=== PATIENT | male | born 1970 | race Hispanic/Latino ===

== ENCOUNTER 2019-05-30 14:04 | Emergency (ER) | payer OTHER ==
[2019-05-30 14:48] LABS: #Basophils 0.1 thou/uL (0.0-0.2); #Eosinphils 0.1 thou/uL (0.0-0.7); #Lymphocytes 1.7 thou/uL (1.20-3.40); #Monocytes 0.5 thou/uL (0.11-0.59); #Neutrophils 4.1 thou/uL (1.40-6.50); %Basophils 0.8 % (0.0-1.0); %Eosinophils 1.3 % (0.0-10.0); %Lymphocytes 26.3 % (21.0-51.0); %Monocytes 7.8 % (0.0-10.0); %Neutrophils 63.8 % (42.0-75.0); Hemoglobin 15.4 g/dL (14.0-18.0); Mean Corpuscular HGB CONC 33.8 g/dL (32.0-36.0); Mean Corpuscular Hemoglobin 32.7 pg (27.0-31.0); Mean Corpuscular Volume 96.9 fL (78.0-98.0); Mean Platelet Volume 6.8 fL (7.4-10.4); Platelet Count 265 thou/uL (130-400); RBC Distribution Width 11.9 % (11.5-14.5); White Blood Cell (WBC) Count 6.4 thou/uL (4.8-10.8)
[2019-05-30 15:09] LABS: ALT (SGPT) 16 U/L (8-55); AST (SGOT) 15 U/L (5-34); Albumin 4.4 g/dL (3.5-5.0); Alkaline Phosphatase 62 U/L (40-150); Anion Gap 11 mmol/L (10-20); BUN (Urea Nitrogen) 13 mg/dL (8.9-20.6); Bilirubin, Total 0.8 mg/dL (0.2-1.2); Calc. Creatinine Clearance 0 mL/min (70-130); Carbon Dioxide 30 mmol/L (22-29); Chloride 100 mmol/L (98-107); Estimated GFR-MDRD 79; Globulin 3.4 g/dL (2.4-3.5); Glucose 140 mg/dL (70-105); Protein, Total 7.8 g/dL (6.0-8.3); Sodium 137 mmol/L (136-145)
--- NOTE | 2019-05-30 16:23 | RAD ---
XR Chest 1 View Portable HISTORY: Syncope nausea and vomiting COMPARISON: None. FINDINGS: Heart size and mediastinum are within normal limits. The lungs are clear of infiltrates. No significant bony findings. IMPRESSION: No active intrathoracic disease.
[2019-05-30 16:37] LABS: CK (CPK) 66 U/L (30-200); Lipase 13 U/L (8-78)
[2019-05-30 17:05] LABS: Bilirubin Negative (Negative); Blood, Urine Negative (Negative); Clarity Clear (Clear); Glucose, Urine (Dipstick) Normal (Negative); Leukocyte Negative Leu/uL (Negative); Nitrite Negative (Negative); Protein, Urine (Dipstick) 20 mg/dL (Neg-Trace); Urobilinogen Normal mg/dL (Less than 2)
--- NOTE | 2019-05-31 17:02 | EKG ---
Test Reason : Blood Pressure : / mmHG Vent. Rate : 080 BPM Atrial Rate : 080 BPM P-R Int : 164 ms QRS Dur : 094 ms QT Int : 390 ms P-R-T Axes : 050 016 031 degrees QTc Int : 449 ms Normal sinus rhythm Possible Left atrial enlargement Borderline ECG Confirmed by GWENDOLYN ROSE, EDWINA ([id number]), desk editor NAY MCNALLY ([id number]) on 05/31/2019 5:01:46 PM Referred By: Confirmed By:EDWINA SNOW MD
== END 2019-05-30 17:42 | disposition home or self-care (01) ==
LOC: ERS 14:04
DX: R11.2 Nausea with vomiting, unspecified (principal); B20 Human immunodeficiency virus [HIV] disease; F32.9 Major depressive disorder, single episode, unspecified; Z79.899 Other long term (current) drug therapy
CPT/HCPCS: 36415; 71045; 80053; 81003; 82550; 83690; 83880; 84484; 85025; 93005

== ENCOUNTER 2019-06-28 15:21 | Inpatient (IN) | payer OTHER ==
[~2019-06-28 15:21] MED LIST: Heparin 1,000 UNITS/ML VIAL ONE
[2019-06-28] MEDS ORDERED: Ondansetron PF 4 MG/2 ML Vial IVP PRN (15:37)
[2019-06-28] MEDS ORDERED: Acetaminophen 325 MG TAB PO PRN (15:37)
[2019-06-28] MEDS ORDERED: Bisacodyl 5 MG TAB PO PRN (15:37)
[2019-06-28] MEDS ORDERED: Ondansetron ODT 4 MG TAB PO PRN (15:37)
[2019-06-28] MEDS ORDERED: Promethazine 25 MG TAB PO PRN (15:45)
[2019-06-28] MEDS ORDERED: Acetaminophen/Codeine 30-300mg Tablet PO PRN (15:46)
[2019-06-28 16:25] LABS: #Lymphocytes 0.6 thou/uL (1.20-3.40); #Monocytes 0.1 thou/uL (0.11-0.59); #Neutrophils 5.3 thou/uL (1.40-6.50); %Eosinophils 0.4 % (0.0-10.0); %Lymphocytes 10.2 % (21.0-51.0); %Monocytes 1.5 % (0.0-10.0); %Neutrophils 87.9 % (42.0-75.0); Hemoglobin 15.4 g/dL (14.0-18.0); Mean Corpuscular HGB CONC 34.4 g/dL (32.0-36.0); Mean Corpuscular Hemoglobin 33.3 pg (27.0-31.0); Mean Corpuscular Volume 96.8 fL (78.0-98.0); Mean Platelet Volume 7.1 fL (7.4-10.4); Platelet Count 238 thou/uL (130-400); RBC Distribution Width 11.9 % (11.5-14.5); Red Blood Cell (RBC) Count 4.63 mill/uL (4.70-6.10); White Blood Cell (WBC) Count 6.1 thou/uL (4.8-10.8)
[2019-06-28 16:31] LABS: Prothrombin Time 12.9 SEC (12.0-14.7)
[2019-06-28 16:49] LABS: ALT (SGPT) 14 U/L (8-55); AST (SGOT) 12 U/L (5-34); Albumin 4.3 g/dL (3.5-5.0); Alkaline Phosphatase 65 U/L (40-150); Anion Gap 12 mmol/L (10-20); BUN (Urea Nitrogen) 8 mg/dL (8.9-20.6); Bilirubin, Total 0.4 mg/dL (0.2-1.2); Calc. Creatinine Clearance 90 mL/min (70-130); Calcium 9.9 mg/dL (7.8-10.44); Carbon Dioxide 28 mmol/L (22-29); Chloride 98 mmol/L (98-107); Estimated GFR-MDRD Greater than 90; Globulin 3.4 g/dL (2.4-3.5); Glucose 121 mg/dL (70-105); Potassium 4.1 mmol/L (3.5-5.1); Protein, Total 7.7 g/dL (6.0-8.3); Sodium 134 mmol/L (136-145)
[2019-06-28] MEDS: Dexamethasone 4 MG in Sodium Chloride 0.9% 50 ML IVPB SCH (17:11)
[2019-06-28] MEDS: Famotidine/PF 20 mg/2ml Vial SLOW IVP SCH (21:54)
[2019-06-28] MEDS ORDERED: SYMTUZA PO SCH (22:00)
[2019-06-29] MEDS: Dexamethasone 4 MG in Sodium Chloride 0.9% 50 ML IVPB SCH ×5 (00:27→23:47)
[2019-06-29] MEDS ORDERED: Prevnar 13-Val Conj/PF 0.5 ML SYRINGE IM ONE (09:00)
[2019-06-29] MEDS: Polyethylene Glycol 3350 17 GM Packet PO PRN (09:41)
[2019-06-29] MEDS: Famotidine/PF 20 mg/2ml Vial SLOW IVP SCH ×2 (09:55→20:40)
--- NOTE | 2019-06-29 12:21 | HP ---
HISTORY OF PRESENT ILLNESS: The patient is a 48-year-old male, who is HIV positive, followed by Dr. Rowland and reportedly well controlled, who presented to the emergency department at the [facility] for progressive gait instability, nausea, and dizziness x1 month. He reports he is typically most nauseous in the morning when he gets out of bed and this improved somewhat during the day. He had been following regularly with Dr. Rowland and did report he has recently had some changes in his HIV medications, which he originally thought was contributing. He denied any headache, vision changes, or other associated symptoms. He was evaluated initially in the ER with a noncontrast head CT, which was notable for right hypodensity in the cerebellum, felt possibly to be related to infarct. However, further evaluation with MRI imaging was found to have abnormal CSF flow about the 4th ventricle and obstructive hydrocephalus. Neurosurgery was consulted for further evaluation and management of this patient. PAST MEDICAL HISTORY: HIV positive. PAST SURGICAL HISTORY: Denies any prior surgeries. HOME MEDICATIONS: Symtuza 800/150/200/10 one tablet p.o. daily. ALLERGIES: NO KNOWN DRUG ALLERGIES. SOCIAL HISTORY: The patient does not smoke, drink, or use any drugs. FAMILY HISTORY: Noncontributory. REVIEW OF SYSTEMS: Per HPI. PHYSICAL EXAMINATION: CONSTITUTIONAL: Awake, alert, in no acute distress. HEENT: Normocephalic and atraumatic. Eyes, PERRLA. Extraocular movements are intact. ENT, oral mucosa is pink, intact, and moist. The patient has normal voice. NECK: Nontender to palpation. Free active range of motion. No meningismus or nuchal rigidity. CARDIAC: Regular rate and rhythm. LUNGS: Symmetric chest expansion. No evidence of dyspnea. MUSCULOSKELETAL: Free active range of motion of all extremities. No focal motor weakness. 5/5 strength throughout. NEURO: A and O x4. Normal lxgohc-gh-btia exam. Cranial nerve exam is normal. He does have an unsteady gait and falls to the left with ambulation. IMPRESSION: Obstructive hydrocephalus. I discussed the patient's presentation exam and imaging with Dr. Pike. We decided to transfer this patient from the [facility] to [facility] for further evaluation and management for his obstructive hydrocephalus. Dr. Pike has discussed the case with Dr. Suarez and the patient will likely require ventriculostomy for treatment at some point. I will make him n.p.o. at midnight tonight in preparation for possible surgical intervention. Job ID: [id number] MTDD
--- NOTE | 2019-06-29 13:00 | PRG ---
DATE OF SERVICE: 06/29/2019 The patient is doing well clinically. He is ambulatory. I discussed this case with Dr. Suarez, who will review his imaging to consider third ventriculostomy this week. We will make the patient n.p.o. after midnight tonight to maintain all options. I discussed the plan with Mr. Luo. We will continue to hold aspirin and his coags are normal. We are using Decadron transiently for symptomatic management. Job ID: [id number]
--- NOTE | 2019-06-29 18:54 | CON ---
DATE OF CONSULTATION: 06/29/2019 REASON FOR CONSULTATION: Newly identified hydrocephalus, obstructive. HISTORY OF PRESENT ILLNESS: A 48-year-old known to me from many years with a history of longstanding HIV infection. I believe his index diagnosis was Pneumocystis pneumonia, but I am not sure about that. He had been very compliant with his medications for many years and his CD4 cell count had increased to mid 700 when last checked just 2 or 3 months ago, this with a suppressed viral load. Now, he developed this persistent dizziness and was admitted to [facility] and then transferred over here after obstructive hydrocephalus was identified. No evidence of inflammatory process in the MRI that was done. So, the main symptomatology complex included the gait imbalance with falls and no headaches, some nausea, and some vomiting. No abdominal pain or diarrhea. No genitourinary symptoms. No joint symptoms. PAST MEDICAL HISTORY: Longstanding HIV seropositive status with adequate compliance with anti-retroviral therapy. Last CD4 cell count in mid 700, suppressed viral load. PAST SURGICAL HISTORY: No surgical history. ALLERGIES: NONE. SOCIAL HISTORY: Never smoker. Lives in the area. He is originally from the [place]. FAMILY HISTORY: Noncontributory. CURRENT MEDICATIONS: 1. Symtuza. 2. Decadron. PHYSICAL EXAMINATION: VITAL SIGNS: With a T-max 98.6, blood pressure 108/74, pulse 94 to 110, and respiratory rate 14. SKIN: Normal. No lymphadenopathy. HEENT: Ocular movements conjugate. Pupils are equal and reactive. Oral cavity normal. NECK: Supple. LUNGS: Symmetric. Clear breath sounds. HEART: S1 and S2, regular rate. No S3 or S4. ABDOMEN: Soft, not distended or tender. No ascites. No bladder distention. LABORATORY DATA: Sodium 134. White cell count 6.1, hemoglobin 15.4, and platelets 238. His last CD4 cell count was 730 with a suppressed viral load. Glucose 121. Liver profile normal. His last QuantiFERON a few months ago was negative. Syphilis negative. ASSESSMENT: Longstanding human immunodeficiency virus infection with excellent control of viremia and normal CD4 cell count, who now has developed obstructive hydrocephalus. The patient is with human immunodeficiency virus seropositive status and hydrocephalus usually develops that condition due to an opportunistic infectious process, either Cryptococcus neoformans meningitis or histoplasma capsulatum infections or Mycobacterium tuberculosis or more rarely PEANUT VENDOR lymphomas. A few cases of aqueductal obstruction due to strictures have been described in the literature, but in general, opportunistic infections or processes are the cause in patients who present with hydrocephalus. In his case, an opportunistic process after so many years of excellent adherence to anti-retroviral therapy and an adequate CD4 cell count would be unusual, but I think we need to proceed with the workup and if whenever CSF is obtained, I would submit for the cryptococcus antigen. Also, CMV DNA PCR, histoplasma antigen, Melanie-Dunbar virus DNA PCR, and Mycobacterium tuberculosis DNA PCR as well, this in addition to cell count, protein and glucose, so we would need a fair amount of CSF probably at least 20 mL for the full panel to be submitted. I will go ahead and place the orders with a pending collection. Job ID: [id number] [facility]
[2019-06-29] MEDS: SYMTUZA PO SCH (20:36)
[2019-06-30] MEDS: Dexamethasone 4 MG in Sodium Chloride 0.9% 50 ML IVPB SCH ×4 (05:05→23:30)
--- NOTE | 2019-06-30 07:21 | PRG ---
DATE OF SERVICE: 06/30/2019 I personally interviewed and examined the patient and I agree with notes from over the weekend. Briefly, Dr. Pike called me on Sunday about Mr. Luo. He is a 48-year-old gentleman with a history of HIV disease who presents with some obstructive hydrocephalus from 4th ventricular outflow difficulty. He requested that I consider an endoscopic third ventriculostomy. He told that his symptoms included some headache, memory difficulty, balance trouble, and nausea. Over the weekend, he has been relatively stable neurologically. He is resting comfortably as I entered the room this morning. On examination, I do not find significant neurological deficit. His imaging studies are described above. I agree with the plan for endoscopic third ventriculostomy. Informed Consent: I discussed indications, risks, benefits, alternatives, and expected outcomes from surgery. The risks we discussed included, but were not limited to, bleeding, infection, damage to the brain, blindness, memory difficulty, seizures, chronic epilepsy, stroke, dependence for care, permanent neurological deficit, and . He understands the risks and wants to proceed. We will make arrangements for this to happen tomorrow. We will make Mr. Luo n.p.o. after midnight tonight for surgery tomorrow and added him to the surgical schedule. Job ID: [id number]
[2019-06-30] MEDS: Famotidine/PF 20 mg/2ml Vial SLOW IVP SCH ×2 (08:07→22:00)
--- NOTE | 2019-06-30 08:30 | PRG ---
DATE OF SERVICE: 06/30/2019 SUBJECTIVE: The patient has remained stable, neurologically intact on the floor. He is tolerating a regular diet. He has no complaints today. The patient met with Dr. Suarez, this morning, their plans were endoscopic third ventriculostomy tomorrow. OBJECTIVE: On exam this morning, the patient is awake, alert, in no acute distress. He is A and O x4. No focal neurologic deficits on my exam. PLAN: We will plan to give him a regular diet today and make him n.p.o. at midnight for plans for third ventriculostomy tomorrow. Job ID: [id number]
[2019-06-30] MEDS: SYMTUZA PO SCH (21:55)
[2019-07-01] MEDS: Dexamethasone 4 MG in Sodium Chloride 0.9% 50 ML IVPB SCH ×4 (05:49→23:32)
--- NOTE | 2019-07-01 06:21 | PRG ---
DATE OF SERVICE: 07/01/2019 SUBJECTIVE: No overnight events. The patient is resting comfortably. He was n.p.o. at midnight, and there are plans today for ventriculostomy with Dr. Suarez. OBJECTIVE: On exam this morning, he is awake, alert, in no acute distress. He has free active range of motion of all extremities. No focal motor weakness. PLAN: Plan for ventriculostomy today with Dr. Suarez. Following that, we will reassess and decide on home at some point versus inpatient rehab. Job ID: [id number]
[2019-07-01] MEDS ORDERED: CEFAZOLIN 2 GM, Admixture Fee 1 EACH in Sodium Chloride 0.9% 100 ML IVPB SCH (08:00)
[2019-07-01] MEDS ORDERED: CEFAZOLIN 2 GM in Premix Bag 1 BAG IVPB SCH ×2 (08:00→13:00)
[2019-07-01] MEDS: Famotidine/PF 20 mg/2ml Vial SLOW IVP SCH ×2 (08:57→21:05)
[2019-07-01] MEDS ORDERED: ceFAZolin Sodium (SDC) 2 GM/100 ML BAG ONE (09:44)
[2019-07-01] MEDS ORDERED: Bacitracin Zinc Ointment 30 gm TUBE ONE (10:23)
[2019-07-01] MEDS ORDERED: Sodium Chloride 0.9% 10 ML ONE (10:23)
[2019-07-01] MEDS ORDERED: Lidocaine 0.5%/Epinephrine 1:200,000 50 ml Vial ONE (10:23)
[2019-07-01] MEDS ORDERED: Fentanyl 100 MCG/2 ML VIAL ONE (11:11)
[2019-07-01] MEDS ORDERED: PROPOFOL 200 MG/20 ML VIAL ONE (12:00)
[2019-07-01] MEDS ORDERED: Metoclopramide HCl 10 MG/2 ML VIAL ONE (12:00)
[2019-07-01] MEDS ORDERED: Lidocaine 1% PF 5 ML VIAL ONE (12:00)
[2019-07-01] MEDS ORDERED: Glycopyrrolate 0.2 MG/ML 5 ML SYRINGE ONE (12:00)
[2019-07-01] MEDS ORDERED: Ondansetron PF 4 MG/2 ML Vial ONE (12:00)
[2019-07-01] MEDS ORDERED: Rocuronium Bromide 10 MG/ML (10ML VIAL) ONE (12:00)
[2019-07-01] MEDS ORDERED: Dexamethasone 20 MG/5 ML VIAL ONE (12:00)
[2019-07-01] MEDS ORDERED: Ketorolac Tromethamine 30 MG/ML VIAL ONE (12:00)
[2019-07-01] MEDS ORDERED: Promethazine HCl 25 MG/ML VIAL SLOW IVP PRN (12:27)
[2019-07-01] MEDS ORDERED: Promethazine HCl 25 MG/ML VIAL IM PRN (12:27)
[2019-07-01] MEDS ORDERED: Meperidine HCl/PF 25 MG/ML VIAL SLOW IVP PRN (12:27)
[2019-07-01] MEDS ORDERED: PACU-Morphine 4MG/ML VIAL SLOW IVP PRN (12:27)
[2019-07-01] MEDS ORDERED: Mag-Al 1200 mg/1200 mg/30 ML UDCUP PO PRN (12:51)
[2019-07-01] MEDS ORDERED: Docusate 100 MG CAP PO PRN (12:51)
[2019-07-01] MEDS ORDERED: Morphine 4 MG/ML VIAL SLOW IVP PRN (12:51)
[2019-07-01] MEDS ORDERED: diphenhydrAMINE 50 MG CAP PO PRN (12:51)
[2019-07-01] MEDS ORDERED: diphenhydrAMINE 50 MG/ML VIAL IVP PRN (12:51)
[2019-07-01] MEDS ORDERED: Acetaminophen/Codeine 30-300mg Tablet PO PRN (12:58)
[2019-07-01] MEDS ORDERED: Morphine 2 MG/ML SYRINGE SLOW IVP PRN (13:30)
[2019-07-01] MEDS: Sodium Chloride 0.9% 1,000 ML IV SCH (13:34)
[2019-07-01 14:08] LABS: CSF Source CSF; Clarity Clear (Clear)
[2019-07-01 14:09] LABS: RBC Count - Manual 6 /cumm (None Seen); WBC/NonHematics Count - Manual 6 /cumm (0-5)
[2019-07-01 14:11] LABS: Color Of CSF Supernatant COLORLESS (Colorless); Unspun CSF Color COLORLESS (Colorless)
[2019-07-01 14:12] LABS: Tube # 2
[2019-07-01 14:26] LABS: CSF, Glucose 87 mg/dl (40-70); CSF, Protein 17 mg/dL (15-40)
[2019-07-01] MEDS: CEFAZOLIN 2 GM in Sodium Chloride 0.9% 100 ML IVPB SCH ×2 (14:29→21:04)
[2019-07-01 14:59] LABS: Ref Lab Test Ordered T SOLIUM IGG; Reference Lab Name LABCORP
[2019-07-01 15:01] LABS: Ref Lab Test Ordered CMV PCR CSF; Reference Lab Name LABCORP
[2019-07-01 15:14] VITALS: BMI 23.6
[2019-07-01 15:33] LABS: Reference Lab Name LABCORP
--- NOTE | 2019-07-01 15:43 | OP ---
DATE OF PROCEDURE: 07/01/2019 LIEUTENANT GENERAL: Kayla Nolasco PA-C PREOPERATIVE INDICATION: Prevent neurological deterioration. PREOPERATIVE DIAGNOSES: Obstructive hydrocephalus and history of human immunodeficiency virus disease. POSTOPERATIVE DIAGNOSES: Obstructive hydrocephalus and history of human immunodeficiency virus disease. OPERATIVE PROCEDURES: Endoscopic third ventriculostomy, CSF sampling for culture and microbiological testing, placement of the external ventricular drain. PREOPERATIVE MEDICATIONS: Ancef 2 g IV. DRAIN NUMBER: 1. DRAIN TYPE: External ventricular. DESCRIPTION OF PROCEDURE: The patient was brought to the operating room. General endotracheal anesthesia was induced. The patient was kept supine on the operating table and his head immobilized by Del Valle pin and head setter with the nose pointing straight towards the ceiling. Hair was removed from the right side of the scalp. We planned a curvilinear incision anterior to the coronal suture on the right side and center of the midpupillary line. Under a planned incision, we infused local anesthetic. The right side of the scalp was sterilely prepped and draped. We opened our incision with a 10 blade knife and controlled bleeding with bipolar and monopolar cautery. We folded a tiny semicircular flap posteriorly and held in place under self-retaining retractor. We then placed a jessica hole anterior to the coronal suture on the right side in the midpupillary line. We waxed the edges of the jessica hole. We coagulated the dura and incised it with a 15 blade knife. We then coagulated back in a cruciate fashion. We gently coagulated the joey and used our ventricular access sheath to pass into the frontal horn of the right lateral ventricle. There was give-way at the entrance to the ventricular system. Surprisingly, the CSF was under very low pressure. We collected CSF for microbiological testing by administering a Valsalva and 20 mL of CSF emanated. We then brought the neural endoscope through the sheath into the ventricular system. We could visualize an opening between the two lateral ventricles. The left foramen of Monro was widely patent, but the right was covered with a faith, translucent tissue that looked like the remnants of an old infectious process. We stapled the sides of the plastic ventricular access sheath to the skin directing our scope to the foramen of Monro on the right side. Using the alligator clamp through the endoscope, we widened. We opened a hole in the membrane within the ependyma over the cord plexus and occluding the foramen of Monro. We then easily passed our endoscope through the foramen into the third ventricle. This created excellent communication between the two lateral ventricles and the third ventricle. The third ventricle floor and stallings were also covered in this translucent tissue that made identification of anatomy more challenging. We turned on the lights in the room and the lights in the scope and transilluminated the wall of this tissue. We saw a representation of the chiasm, the infundibular suprachiasmatic recess and posteriorly mammillary bodies. The suprachiasmatic recess led to the lamina terminalis, which was quite thin and a small opening was made there without difficulty. Between the infundibular recess and the mamillary bodies, we opened the floor of the third ventricle. Small opening was made with alligator clamp. We passed it through the floor, opened the teeth and withdrew it. This created CSF flow as evidenced with bubbles and . We looked into the prepontine cistern. We then withdrew the scope. We ensured that both lateral ventricles still communicated that the foramina of Monro were widely patent and that there was no bleeding. The CSF was quite clear. We measured the distance of the foramen of Monro and brought our external ventricular drain into the field. We withdrew the scope and placed the external ventricular drain through our ventricular access sheath and then removed the halves of the sheath around the drain. We tunneled the drain posteriorly through a separate stab incision. We placed Gelfoam in the jessica hole and we closed our incision in anatomical layers. We connected the distal end of the external ventricular drain to the CSF monitoring system. We tacked the drain down to the scalp and placed a sterile dressing over it. This was a clean case, no contamination. Job ID: [id number]
[2019-07-01] MEDS: Polyethylene Glycol 3350 17 GM Packet PO PRN (21:04)
[2019-07-01] MEDS: SYMTUZA PO SCH (21:05)
[2019-07-02] MEDS: Sodium Chloride 0.9% 1,000 ML IV SCH (04:28)
--- NOTE | 2019-07-02 06:45 | PRG ---
DATE OF SERVICE: 07/02/2019 SUBJECTIVE: The patient is postoperative day #1, status post endoscopic third ventriculostomy for obstructive hydrocephalus by Dr. Suarez. Following the surgery, he was transferred to the ICU, where he was monitored closely. EVD was placed intraoperatively to be used for any ICP elevations. The patient did not have any elevation of the ICP; therefore, no CSF was drained via the EVD overnight. He reports he is feeling well this morning. Denies any significant pain. OBJECTIVE: On exam, he is awake, alert, in no acute distress. He is oriented x4. He has free active range of motion of all extremities. No focal motor weakness. PLAN: We will plan to remove his EVD, discontinue his Ancef and Decadron. We will transfer him to the floor. We will continue to mobilize and advance his diet. I anticipate home in 1 to 2 days. Job ID: [id number]
[2019-07-02] MEDS: Famotidine/PF 20 mg/2ml Vial SLOW IVP SCH ×2 (09:54→20:27)
--- NOTE | 2019-07-02 11:01 | PRG ---
DATE OF SERVICE: 07/02/2019 I saw Yohan Luo in his hospital room this morning. The drain has already been removed. He had a reasonable postoperative course. He does not find any new neurological symptoms. Mr. Luo's ventricular system was interesting. There was the thickest veil of faith-white tissue lining the ependyma, some of which included the right foramen of Monro. There was an opening in the septum that allowed us to look at the left foramen of Monro, which was still patent. Through the endoscope, we opened the right foramen of Monro and we opened a new third ventriculostomy into the prepontine cistern. We also were able to look forward to the lamina terminalis to make a small opening there. Could not look backwards far enough to delineate the cerebral aqueduct, but given the membranes, I saw this entirely possibly had an old bout of meningitis that has prevented CSF circulation. I worry that the fourth ventricle is not connecting to the third and that outflow from the fourth is obstructed by the same sort of chronic appearing membranes. A little over 20 mL of CSF was sent for testing and those are pending. Mr. Luo is doing well. I informed him that Dr. Pike planned to watch him and discharge if he is neurologically stable and to follow up in the coming week or two to see if the fourth ventricle decreases in size at all and the symptoms improve. If it does not, referral could be made to the pediatric neurosurgeon used to shunting the fourth ventricle or could be opened in the suboccipital craniectomy with splitting of the tonsils, that decision could be made at a later date if there is no improvement. Job ID: [id number]
--- NOTE | 2019-07-02 17:45 | PRG ---
DATE OF SERVICE: 07/02/2019 SUBJECTIVE: The patient had a procedure and seems to have been successful. He denies headaches. No visual symptoms, sore throat, odynophagia or dysphagia. No dyspnea. No chest pain. No abdominal pain or diarrhea. No genitourinary symptoms. OBJECTIVE: VITAL SIGNS: He has been afebrile. Blood pressure 130/78. NECK: Supple. HEENT: Ocular movements conjugate. The site where the procedure was done appears well. LUNGS: Clear. HEART: S1 and S2, regular rate. ABDOMEN: Soft, not distended. MUSCULOSKELETAL: No joint inflammatory activity. LABORATORY DATA: The cryptococcus antigen was positive in the CSF, demonstrated 6 wbc's, glucose 87, protein 17. The operative report was reviewed, and the dura was incised and ventricular access sheath passed into the frontal horn. The CSF was under very low pressure. Neuro-endoscope was brought through this sheath into the ventricular system, and there is an opening between the two lateral ventricles. The foramen of Monro was widely patent, but the right was covered with a faith translucent tissue. It looked like the remnants of an old infectious process. An endoscope was passed through the foramen into the 3rd ventricle, which created an excellent communication between the two lateral ventricles and 3rd ventricle. The 3rd ventricular floor was also covered by this translucent tissue and no bleeding was seen. CSF was quite clear. The other labs are not particularly remarkable. The creatinine is 0.8. A number of other assays are pending. 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 This is quite surprising in a patient who has had excellent control of his human immunodeficiency virus infection and quite unusual. Typically, cryptococcus meningitis in patients with human immunodeficiency virus presents with quite aggressive progression, but typically in patients with advanced immunosuppression and CD4 cell count less than 50 usually. I guess in patients in his situation with very adequate recovery of immune function, we may see this more smoldering chronic presentation like in this case. We will go ahead and treat him with the usual course of AmBisome and then add flucytosine and then switch to fluconazole after the first 2 weeks to complete course of treatment. Job ID: [id number]
[2019-07-02] MEDS ORDERED: AMBISOME IVPB SCH (18:00)
[2019-07-02] MEDS ORDERED: WATER IVPB SCH (18:00)
[2019-07-02] MEDS ORDERED: DEXTROSE 5% IVPB SCH (18:00)
[2019-07-02] MEDS: SYMTUZA PO SCH (20:28)
--- NOTE | 2019-07-03 07:30 | PRG ---
DATE OF SERVICE: 07/03/2019 SUBJECTIVE: The patient is postoperative day #2, status post third ventriculostomy for obstructive hydrocephalus. His CSF was positive for cryptococcus and he has been following by Dr. Rowland. There are plans for a PICC line placement later today. Also plans to start him on AmBisome and flucytosine and eventually transitioned to fluconazole. He otherwise has no complaints. Reports his headache and nausea are improved, as well as some of his unsteadiness with balance. OBJECTIVE: GENERAL: On exam this morning he is awake, alert, in no acute distress. Oriented x3. EXTREMITIES: He has free active range of motion of all extremities. No focal motor weakness. No focal neurologic deficits are appreciated on my exam. His incision is clean, dry, and intact. PLAN: We will plan to continue to mobilize appropriately and I have ordered a rolling walker for ambulation. PICC line later today and Dr. Rowland' team will arrange his antifungal medications. I anticipate home tomorrow some time. Job ID: [id number]
[2019-07-03] MEDS ORDERED: Admixture Fee 1 EACH in Dextrose 5% in Water 10 ML FS SCH ×2 (09:00→18:00)
[2019-07-03] MEDS: Famotidine/PF 20 mg/2ml Vial SLOW IVP SCH ×2 (09:11→20:42)
--- NOTE | 2019-07-03 09:46 | PRG ---
DATE OF SERVICE: 07/03/2019 Mr. Luo is doing well and continues to be symptomatically improved following his 3rd ventriculostomy. The CSF has been positive for cryptococcal antigen. PLAN: He is to get a PICC line and start antifungal under the direction of Dr. Rowland. He can then be safely discharged and then plan on a 2-week followup head CT. Job ID: [id number]
--- NOTE | 2019-07-03 15:05 | SPC ---
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 TECHNIQUE: Catheter caliber: 5 Cymraes Catheter trim length:41 cm Catheter lumen number:single Catheter tip location:Lower portion of superior vena cava. Vein accessed:left basilic Total fluoroscopy time: 0.7 min. Dose area product: 1825 mGy*cm^2 Signed, informed consent was obtained. A tourniquet was applied at the proximal aspect of the arm. Th e arm was prepped and draped in the usual sterile fashion. A 25-gauge needle was used to applied buffered lidocaine superficially. The vein was punctured with a 21-gauge micropuncture needle under u ltrasound guidance. A 0.018 inch guidewire was advanced through the micropuncture needle and into the vein. Under fluoroscopic guidance, the guidewire was advanced to the superior vena cava. The PICC was flushed and trimmed to the appropriate length. The micropuncture needle was exchanged over the guidewire for a 5 Cymraes peel-away dilator sheath. The dilator was exchanged over the guidewire for t he PICC, which was then further advanced under fluoroscopy. The sheath and guidewire were removed. The PICC was flushed again and secured in place at the arm after adjustment of tip position. The perlita ent tolerated the procedure well. There was no complication. IMPRESSION: Successful placement of PICC (peripherally inserted central catheter).
[2019-07-03] MEDS ORDERED: DEXTROSE 5% IVPB SCH (18:00)
[2019-07-03] MEDS ORDERED: WATER IVPB SCH (18:00)
[2019-07-03] MEDS ORDERED: AMBISOME IVPB SCH (18:00)
[2019-07-03] MEDS: SYMTUZA PO SCH (20:42)
[2019-07-04] MEDS: Famotidine/PF 20 mg/2ml Vial SLOW IVP SCH (09:35)
--- NOTE | 2019-07-04 14:16 | DIS ---
DATE OF ADMISSION: 06/28/2019 DATE OF DISCHARGE: 07/04/2019 DISCHARGE SUMMARY: The patient is a 48-year-old male with a past medical of HIV followed by Dr. Rowland, who presented to the [facility] over the weekend for increased headaches, nausea, and difficulty ambulating. On his MRI, he was found to have obstructive hydrocephalus. He was transferred to [facility] for further management and underwent endoscopic third ventriculostomy by Dr. Suarez on 07/01/2019. CSF was sent for review and grew cryptococcal organisms. The patient is also being followed by Dr. Rowland, and a PICC line was placed and they planned to treat this with an antifungal regimen. The patient improved after his third ventriculostomy. He has been up, ambulating with a walker without any difficulty. He is tolerating a regular diet and voiding appropriately. His incision has remained clean, dry, and intact. We will plan to follow up with the patient in 2 weeks in the office to reassess his progress and dismiss to home. Job ID: [id number]
[2019-07-04 15:59] VITALS: BP 110/70; TEMP 98.6
== END 2019-07-04 16:44 | disposition home or self-care (01) | DRG 25 ==
LOC: SURG A 15:21 → CCU 07-01 13:37 → SJJU 07-02 13:26
PROVIDERS: ADMIT Neurological Surgery; ATTEND Neurological Surgery
PROC: 00164ZB Bypass Cerebral Ventricle to Cerebral Cisterns, Percutaneous Endoscopic Approach (ICD-10-PCS; principal; 2019-07-01)
PROC: 009600Z Drainage of Cerebral Ventricle with Drainage Device, Open Approach (ICD-10-PCS; 2019-07-01)
PROC: 02HV33Z Insertion of Infusion Device into Superior Vena Cava, Percutaneous Approach (ICD-10-PCS; 2019-07-03)
PROC: B548ZZA Ultrasonography of Superior Vena Cava, Guidance (ICD-10-PCS; 2019-07-03)
DX: G91.1 Obstructive hydrocephalus (principal); B45.1 Cerebral cryptococcosis; B20 Human immunodeficiency virus [HIV] disease; R26.89 Other abnormalities of gait and mobility
CPT/HCPCS: 36415; 36569; 80053; 82945; 84157; 85025; 85610; 85730; 86592; 87798; 87899; 89051; 90471; 90670; C1751; G0009; J0131; J0289; J0690; J1100; J1644; J1885; J2001; J2405; J2704; J2765; J3010; J3490; J7070; Q0162; S0028

== ENCOUNTER 2019-07-30 14:09 | Outpatient (CLI) | payer OTHER ==
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
== END 2019-07-30 14:10 | disposition home or self-care (01) ==
LOC: TBSIIMAG 14:09
PROVIDERS: ATTEND Neurological Surgery
DX: G91.9 Hydrocephalus, unspecified (principal)
CPT/HCPCS: 70450

== ENCOUNTER 2025-11-03 17:21 | Emergency (ER) | payer OTHER ==
[2025-11-03 20:29] LABS: #Basophils 0.03 10x3/uL (0.0-0.2); #Eosinophils 0.10 10x3/uL (0.0-0.7); #Monocytes 0.74 10x3/uL (0.11-0.59); #Neutrophils 3.92 10x3/uL (1.40-6.50); %Basophils 0.5 % (0.0-1.0); %Eosinophils 1.7 % (0.0-10.0); %Lymphocytes 19.0 % (21.0-51.0); %Monocytes 12.5 % (0.0-10.0); %Neutrophils 66.0 % (42.0-75.0); Hematocrit 39.7 % (42.0-52.0); Hemoglobin 13.7 g/dL (14.0-18.0); Mean Corpuscular Hemoglobin 31.6 pg (27.0-31.0); Mean Corpuscular Volume 91.7 fL (78.0-98.0); Platelet Count 225 10x3/uL (130-400); Red Blood Cell (RBC) Count 4.33 mill/uL (4.70-6.10); White Blood Cell (WBC) Count 5.94 10x3/uL (4.8-10.8)
[2025-11-03 20:49] LABS: ALT (SGPT) 37 U/L (Less than 45); AST (SGOT) 35 U/L (11-34); Albumin 3.8 g/dL (3.1-4.5); Alkaline Phosphatase 82 U/L (40-110); Anion Gap 11 mmol/L (10-20); BUN (Urea Nitrogen) 9 mg/dL (8.4-25.7); Bilirubin, Total 0.4 mg/dL (0.3-1.2); Calc. Creatinine Clearance 0 mL/min (70-130); Calcium 8.9 mg/dL (7.8-10.44); Carbon Dioxide 28 mmol/L (22-29); Chloride 105 mmol/L (98-107); Globulin 3.4 g/dL (2.4-3.5); Glucose 138 mg/dL (70-105); Potassium 3.7 mmol/L (3.5-5.1); Sodium 140 mmol/L (136-145)
== END 2025-11-04 00:14 | disposition short-term general hospital (02) ==
LOC: ERS 17:21
DX: G91.1 Obstructive hydrocephalus (principal); B20 Human immunodeficiency virus [HIV] disease; I63.89 Other cerebral infarction; G93.89 Other specified disorders of brain
CPT/HCPCS: 70450; 80053; 85025; 99284